=== PATIENT | male | born 1960 | race Caucasian/White ===

== ENCOUNTER 2021-11-01 10:05 | Outpatient (CLI) | payer BC, SELFPAY ==
[2021-11-01 14:57] LABS: Chloride* 103 mmol/L (96-114); Potassium* 4.7 mmol/L (3.6-5.1); Sodium* 138 mmol/L (135-149)
[2021-11-01 15:00] LABS: Blood Urea Nitrogen* 17 mg/dL (7-30); Carbon Dioxide* 30 mmol/L (20-32); Cholesterol* 212 mg/dL (90-199); Creatinine* 0.9 mg/dL (0.5-1.5); Estimated Glomerular Filt Rate 97 ml/min
[2021-11-01 15:01] LABS: Calcium* 9.2 mg/dL (8.4-10.6); Glucose* 93 mg/dL (60-115); HDL Cholesterol* 50 mg/dL (>=40); LDL Cholesterol Calculated 140 mg/dL (<100); Triglycerides* 108 mg/dL (40-149)
[2021-11-01 15:30] LABS: PSA Screen* 6.47 ng/mL (0.10-4.00)
== END 2021-11-01 10:06 | disposition home or self-care (01) ==
PROVIDERS: PCP Family Medicine; Visit Provider Family Medicine
DX: Z00.00 Encounter for general adult medical examination without abnormal findings (principal); E78.5 Hyperlipidemia, unspecified; R97.20 Elevated prostate specific antigen [PSA]; Z13.1 Encounter for screening for diabetes mellitus
CPT/HCPCS: 80048; 80061; 84153

== ENCOUNTER 2022-04-10 12:04 | Outpatient (CLI) | payer BC, SELFPAY | END 2022-04-10 12:05 | disposition home or self-care (01) | LOC: OP CLINIC 12:06 | PROVIDERS: PCP Family Medicine; Visit Provider Surgery | DX: Z12.11 Encounter for screening for malignant neoplasm of colon (principal); Z83.71 Family history of colonic polyps; Z86.010 Personal history of colon polyps | CPT/HCPCS: 45378; J2250; J3010 ==

== ENCOUNTER 2023-04-19 07:50 | Outpatient (CLI) | payer BC, SELFPAY | END 2023-04-19 07:51 | disposition home or self-care (01) | PROVIDERS: PCP Family Medicine; Visit Provider Family Medicine | DX: E78.5 Hyperlipidemia, unspecified (principal); R97.20 Elevated prostate specific antigen [PSA]; Z13.228 Encounter for screening for other metabolic disorders | CPT/HCPCS: 80048; 80061; 84153; 84460 ==

== ENCOUNTER 2024-06-10 08:52 | Outpatient (CLI) | payer BC, SELFPAY | END 2024-06-10 08:53 | disposition home or self-care (01) | PROVIDERS: PCP Family Medicine; Visit Provider Family Medicine | DX: E78.2 Mixed hyperlipidemia (principal); R97.20 Elevated prostate specific antigen [PSA]; Z12.5 Encounter for screening for malignant neoplasm of prostate | CPT/HCPCS: 80048; 80061; 84153; 84460 ==

== ENCOUNTER 2025-02-23 07:55 | Outpatient (CLI) | payer BC, SELFPAY | END 2025-02-23 07:56 | disposition home or self-care (01) | LOC: NFLDREF 02-26 13:27 | PROVIDERS: PCP Family Medicine; Referring Provider Family Medicine; Visit Provider Family Medicine | DX: E78.2 Mixed hyperlipidemia (principal); R97.20 Elevated prostate specific antigen [PSA] | CPT/HCPCS: 80048; 80061; 84460; G0103 ==

== ENCOUNTER 2025-03-24 06:59 | Outpatient (CLI) | payer BC, SELFPAY ==
--- NOTE | 2025-03-24 07:15 | CRLHL7_ITS ---
For Patients: As a result of the Century Cures Act, medical imaging exams and procedure reports are released immediately into your electronic medical record. You may view this report before your referring provider. If you have questions, please contact your health care provider. CLINICAL INDICATION: Elevated PSA. TECHNIQUE: MRI of the prostate on a 1.5T machine with T1, T2, diffusion-weighted and dynamic post-contrast images obtained. VISENZE post-processing software was used for image analysis. FINDINGS: The prostate midline length = 5.7 cm, width at base = 4.4 cm, mid = 4.8 cm, apex = 4.1 cm. Estimated volume = 62 cc. No suspicious lesions identified in the prostate gland. No natalie-prostatic or pelvic side wall adenopathy. No other bony or soft tissue abnormalities identified. IMPRESSION: 1. No suspicious lesions identified in the prostate gland. REFERENCE: PI-RADS Prostate Imaging - Reporting and Data System 2015 version 2. ACR, the [employer]. Dictated by Renny Frias MD @ 03/24/2025 4:57:54 PM (Electronically Signed)
== END 2025-03-24 07:00 | disposition home or self-care (01) ==
LOC: MRI 06:59
PROVIDERS: PCP Family Medicine; Visit Provider Family Medicine
DX: R97.20 Elevated prostate specific antigen [PSA] (principal)
CPT/HCPCS: 72197; A9575